=== PATIENT | male | born 1945 | race Caucasian/White ===

== ENCOUNTER → 2017-01-12 | Outpatient (CLI) | payer MEDICARE ==
[~2017-01-12] MED LIST: ACET-62 PO; AMLO5TAB66 PO; CETI-269 PO; CHOL100018 PO; CLOP75TA19 PO; ISOS30TA6 PO; LACT1CAP80 PO; LEVO50TA11 PO; LEVO50TA69 PO; MULT-933 PO; NITR0.4T27 PO; PRAV40TA3 PO; RANI150T12 PO
[2017-01-12 11:03] LABS: BASOPHILS % (AUTO) 0.3 % (0-2); EOSINOPHILS # (AUTO) 0.1 T/MM3 (0-0.5); EOSINOPHILS % (AUTO) 1.1 % (0-4); HCT - HEMATOCRIT 45.5 % (41-53); HGB - HEMOGLOBIN 15.7 GM/DL (13.5-17.5); IMMATURE GRANULOCYTE # (AUTO) 0.02 T/MM3 (0.00-0.03); IMMATURE GRANULOCYTE % (AUTO) 0.2 % (0.0-0.5); LYMPHOCYTES # (AUTO) 1.7 T/MM3 (1-4.8); LYMPHOCYTES % (AUTO) 17.2 % (23-45); MEAN CORPUSCULAR HGB 32.5 UUG (26-34); MEAN CORPUSCULAR HGB CONC(MCHC 34.5 GM/DL (31-37); MEAN CORPUSCULAR VOLUME 94.2 UM3 (80-100); MONOCYTES # (AUTO) 0.7 T/MM3 (0-0.8); MONOCYTES % (AUTO) 7.4 % (0-9.0); NEUTROPHILS #(AUTO)-ABSOLUTE 7.2 T/MM3 (1.8-7.7); NEUTROPHILS % (AUTO) 73.8 % (33-66); RED BLOOD COUNT 4.83 M/MM3 (4.50-5.90); WBC - WHITE BLOOD COUNT 9.8 T/MM3 (4.5-11.0)
[2017-01-12 11:14] LABS: ALBUMIN 4.4 G/DL (3.5-5.0); ALBUMIN/GLOBULIN RATIO 1.8 RATIO (1.1-2.2); ALKALINE PHOSPHATASE 71 U/L (38-126); ALT (SGPT) 33 U/L (21-72); ANION GAP 8 MEQ/L (5-15); AST (SGOT) 27 U/L (17-59); BUN/CREATININE RATIO 18 RATIO (6-26); CALCIUM 9.5 MG/DL (8.4-10.2); CHLORIDE 108 MEQ/L (98-107); CO2 - CARBON DIOXIDE 30 MEQ/L (22-30); CREATININE 0.9 MG/DL (0.8-1.5); GLOMERULAR FILTRATION RATE 83; GLUCOSE 94 MG/DL (75-110); POTASSIUM 4.6 MEQ/L (3.6-5); SODIUM 146 MEQ/L (134-144); TOTAL PROTEIN 6.9 G/DL (6.3-8.2)
== END ==
LOC: LAB 10:47
PROVIDERS: ATTEND Surgery Plastic and Reconstructive Surgery
DX: Z01.818 Encounter for other preprocedural examination (principal)
CPT/HCPCS: 36415; 80053; 85025

== ENCOUNTER → 2017-01-17 | Outpatient (CLI) | payer MEDICARE ==
[~2017-01-17] MED LIST changes: +ACET1TAB12 PO; +ASPI81TA2 PO; +CEPH-583 PO; +NIAC500T22 PO
--- NOTE | 2017-01-17 10:27 | DI ---
Indication: ITS.REASON: M54.5 LOW BACK PAIN with bilateral leg pain for several months PROCEDURE: MRI LUMBAR SPINE W/O CONTRAST: Encounter: Initial Comparison: Lumbar spine MRI dated June 13, 2015 Technique: Multiplanar multisequence MR imaging of the lumbar spine was performed without contrast. Findings: Alignment lumbar spine is stable. No acute fracture identified. Multiple small Schmorl's nodes seen. 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 Conus medullaris terminates normally at L1-L2. Paraspinal soft tissues show small probable hepatic cysts but no acute findings. Segmental analysis: L1-L2: Normal L2-L3: Normal L3-L4: Normal L4-L5: Small annular tear and central disk protrusion. Posterior decompression. Left lateral recess narrowing and severe left neural foraminal stenosis with impingement on the exiting left L4 nerve root by bone and disk material. Degenerative facet disease also contributes to moderate right neural foraminal stenosis. This is worse than described on the comparison report but visually appears similar. L5-S1: Evidence of an annular tear in the disk without focal protrusion or central canal stenosis. Mild degenerative facet hypertrophy. Right lateral osteophytes which slightly displaces the exiting right L5 nerve root. Mild right neural foraminal stenosis. No significant left foraminal narrowing. Impression: Postoperative lumbar spine with severe left neural foraminal stenosis at L4-L5. .
== END ==
LOC: IMA 09:32
PROVIDERS: ATTEND Orthopaedic Surgery
DX: M51.16 Intervertebral disc disorders with radiculopathy, lumbar region (principal); M47.26 Other spondylosis with radiculopathy, lumbar region; M47.27 Other spondylosis with radiculopathy, lumbosacral region; Z98.890 Other specified postprocedural states; M54.5 Low back pain

== ENCOUNTER 2017-01-19 07:24 | Day surgery (SDC) | payer MEDICARE ==
[~2017-01-19] VITALS: Ht 185.4 cm; Wt 92.0 kg
[2017-01-19] VITALS (23 sets, daily range): BP systolic 101–130; BP diastolic 53–81; PULSE 54–66; RESP 15–18; TEMP 97.6–98.4; O2SAT 91–96; Ht 185.4 cm; Wt 92.0 kg
[~2017-01-19 07:24] MED LIST changes: -ACET-62 PO; -ACET1TAB12 PO; -ASPI81TA2 PO; -CEPH-583 PO; +FENTANYL 100mcg/2ml INJECTION IV PRN; +LIDOCAINE 1% (10mg/ml) 2ml SDV INJ ONE; +LR 1,000 ML IV SCH
[2017-01-19] MEDS ORDERED: ASPI81TA2 PO (07:39)
--- OUTSIDE RECORDS SUMMARY | 2017-01-19 07:43 | XMS REPORT | Continuity of Care Document ---
Author Author [facility] Organization [facility] Address Unknown Phone Unavailable Support Name Relationship Address Phone PAN ROBERTS MD Caregiver [address] [place] [address] Unavailable JONATHAN WOLFF MD Caregiver [address] [phone] Unavailable WADE HOLCOMB MD Caregiver [address] [place] [address] Unavailable DIDI SANTOS Next Of Kin [address] [place] [address] Insurance Providers Guarantor Miguel Santos Address [address] [place] [address] Email DENIED/NO TO PT [facility] Medicare Policy Number [id number] Subscriber's Name Miguel Santos Relationship 18 Self Effective Date 09 [facility] Policy Number [id number] Subscriber's Name Miguel Santos Relationship 18 Self Group Number [id number] Advance Directives Directive Response Recorded Date/Time Advanced Directives Type Living Will DPOA for Healthcare 04/05/14 1:38pm Ordered Resuscitation Status Full Code 04/05/14 2:47pm Resuscitation Documents on File No 04/05/14 1:38pm Chief Complaint and Reason for Visit Chief Complaint Chest Pain Reason for Visit Coronary artery disease [id number] Chest pain at rest Problems Past Problems Medical Problem Onset Date Atypical angina Unknown Chest pain at rest Unknown Chest pain radiating to arm Unknown Coronary artery disease Unknown Gastroenteritis Unknown Medications Current Home Medications Medication Dose Units Route Directions Days Qty Instructions Start Date Acetaminophen 500 Mg Tablet 1-2 Tab Oral As Needed as needed for Pain 09/13/16 Amlodipine Besylate (Norvasc) 5 Mg Tablet 2.5 Mg Oral Twice A Day 12/08/09 Cetirizine Hcl 10 Mg Tablet 10 Mg Oral Daily 09/11/16 Cholecalciferol (Vitamin D3) 1,000 Unit Tablet 1,000 Mg Oral Daily 07/06/16 Clopidogrel Bisulfate (Plavix) 75 Mg Tablet 75 Mg Oral Bedtime Isosorbide Mononitrate (Isosorbide Mononitrate Er) 30 Mg Tab.er.24h 30 Mg Oral Am 09/13/16 Isosorbide Mononitrate (Isosorbide Mononitrate Er) 30 Mg Tab.er.24h 60 Mg Oral Every Evening 09/13/16 Lactobacillus Combo No.10 (Probiotic) 1 Each Capsule 1 Cap Oral Daily 09/13/16 Levothyroxine Sodium (Synthroid) 50 Mcg Tablet 50 Mcg Oral 4 Times A Week TAKES 1 TAB TUE-Tue12/08/09 Levothyroxine Sodium 50 Mcg Tablet 25 Mcg Oral Tuesday09/13/16 Multivitamin (Multi-Day Vitamins) 1 Each Tablet 1 Tab Oral Daily 09/13/16 Nitroglycerin (Nitroquick) 0.4 Mg Tablet 0.4 Mg Oral Every 5 Minutes X 3 as needed for Chest Pain 12/08/09 Pravastatin Sodium 40 Mg Tablet 40 Mg Oral Daily 09/13/16 Ranitidine Hcl (Zantac) 150 Mg Tablet 150 Mg Oral Twice A Day 04/15 Past Home Medications Medication Directions Ordered Status Amlodipine Besylate (Norvasc) 2.5 Mg Tablet, 5 Mg Oral Daily 02/18/09 Discontinued Aspirin 81 Mg Tablet, 1 Tab Oral Daily 12/08/09 Discontinued Aspirin 81 Mg Tablet, 81 Mg Oral Daily 02/18/09 Discontinued Aspirin 325 Mg Tablet.dr, 325 Mg Oral Daily 10/04/08 Discontinued Clopidogrel Bisulfate (Plavix) 75 Mg Tablet, 75 Mg Oral Daily 02/18/09 Discontinued Doxycycline Hyclate 100 Mg Capsule, 100 Mg Oral Twice A Day 07/07/12 Discontinued Doxycycline Monohydrate (Doxycycline) 150 Mg Tablet, 150 Mg Oral Twice A Day 10/04/08 Discontinued Ergocalciferol (Vitamin D) 400 Unit Tablet, 3 Tab Oral Daily 12/08/09 Discontinued Ergocalciferol (Vitamin D) 400 Unit Capsule, 800 Unit Oral Daily 02/18/09 Discontinued Ibuprofen 200 Mg Tablet, 200 Mg Oral As Needed 10/04/08 Discontinued Isosorbide Mononitrate (Imdur) 30 Mg Tablet, 30 Mg Oral Daily 02/18/09 Discontinued Levothyroxine Sodium (Synthroid) 50 Mcg Tablet, 50 Mcg Oral Daily 02/18/09 Discontinued Metoprolol Succinate 25 Mg Tab.sr.24h, 25 Mg Oral 1/2 Tab Qod 02/18/09 Discontinued Multivitamins (Multivitamin) 1 Tab Tablet, 1 Tab Oral Daily 02/18/09 Discontinued Niacin (Niaspan) 1,000 Mg Tablet.sa, 2000 U Oral Daily 02/18/09 Discontinued Nitroglycerin (Nitroquick) 0.4 Mg Tablet, 0.4 Mg Sublingual As Needed Discontinued Rangely-3 Fatty Acids (Rangely-3) 1,000 Mg Capsule, 1 Cap Oral Daily 12/08/09 Discontinued Pravastatin Sodium 20 Mg Tablet, 20 Mg Oral Daily 02/18/09 Discontinued Social History Social History Problem Response Recorded Date/Time Onset Date Status Chewing Tobacco Status No 04/05/2014 1:38pm Not Applicable Not Applicable Hx Substance Use No 09/13/2016 12:10pm Not Applicable Not Applicable Hx Alcohol Use N 3-4X YR 09/13/2016 12:10pm Not Applicable Not Applicable Has the pt used tobacco in the last 12 months No 09/11/2016 1:01am Not Applicable Not Applicable Query Response Start Date Stop Date Smoking Status Never smoker Hospital Discharge Instructions No hospital discharge instructions. Plan of Care Discharge Date 09/13/16 2:49pm Disposition 02 TO [facility] Condition at Discharge Stable Prescriptions See Medication Section Referrals PAN ROBERTS MD Address: [address] [place] [id number] Functional Status No functional status results. Allergies, Adverse Reactions, Alerts Allergen Type Severity Reaction Status Last Updated NSAIDS (Non-Steroidal Anti-Inflamma Adverse Reaction Unknown DO NOT TAKE PER SHELLACKER Active 09/13/16 Lorazepam Adverse Reaction Intermediate HEADACHE; DIZZINESS; VOMITING Active 09/13/16 Oxycodone Adverse Reaction Intermediate HEADACHE; DIZZINESS; STOMACH PAIN; FLUSHING Active 09/13/16 Sulfamethoxazole Allergy Unknown Active 09/13/16 Trimethoprim Allergy Unknown Active 09/13/16 Ciprofloxacin Allergy Intermediate N/V, DIZZINESS Active 09/13/16 Metronidazole Allergy Mild confused Active 09/13/16 Clarithromycin Allergy Unknown Active 09/13/16 Paroxetine Allergy Intermediate N/V, DIZZINESS Active 09/13/16 Doxazosin Allergy Intermediate N/V, DIZZINESS Active 09/13/16 Pantoprazole Allergy Unknown DISORIENTATION Active 09/13/16 Immunizations Query Response on File Recorded Date/Time Hx Influenza Vaccination Y JUL 2016 09/11/16 1:01am Hx Pneumococcal Vaccination Y WITHIN THE LAST 5 YEARS 09/11/16 1:01am Hx Influenza Vaccination Y JUL 2016 09/11/16 1:01am Vital Signs Acute Vital Signs Vital Response Date/Time Temperature (Fahrenheit) 98.3 deg F (96.8 - 99.1) 09/13/2016 2:49pm Temperature (Calculated Celsius) 36.76556 degrees C (36.0 - 37.3) 09/13/2016 2:49pm Temperature Source Temporal 07/19/2016 12:06pm Pulse Rate (adult) 54 bpm (60 - 100) 09/13/2016 2:49pm Respiratory Rate 13 breaths/min (10 - 20) 09/13/2016 2:49pm O2 Sat by Pulse Oximetry 97 % (90 - 100) 09/13/2016 2:49pm Oxygen Delivery Method Room Air 09/11/2016 7:38am Oxygen Flow Rate 4.00 L/min 07/19/2016 12:06pm Blood Pressure 160/85 mm Hg 09/13/2016 2:49pm Blood Pressure Source Automatic Cuff 09/11/2016 7:38am Height (Feet) 6 feet 09/13/2016 12:10pm Height (Inches) 2.00 inches 09/13/2016 12:10pm Weight (Kilograms) 89.200 kg 09/13/2016 12:10pm Body Mass Index (BMI) 25.0 09/13/2016 12:10pm Results Laboratory Results Test Name Result Units Flags Reference Collection Date/Time Result Date/ Time Comments Lipase 64 U/L 23-300 07/06/2016 2:54pm 07/06/2016 6:58pm Total Bilirubin 0.70 MG/DL 0.20-1.30 09/11/2016 11:31am 09/11/2016 11: 48am Alkaline Phosphatase 59 U/L 38-126 09/11/2016 11:31am 09/11/2016 11: 48am Total Protein 5.7 G/DL L 6.3-8.2 09/11/2016 11:31am 09/11/2016 11:48am Albumin 3.5 G/DL 3.5-5.0 09/11/2016 11:31am 09/11/2016 11:48am Globulin 2.2 G/DL L 2.4-3.6 09/11/2016 11:31am 09/11/2016 11:48am Albumin/Globulin Ratio 1.6 RATIO 1.1-2.2 09/11/2016 11:3109/11/2016 11:48am Aspartate Amino Transf (AST/SGOT) 23 U/L 17-59 09/11/2016 11:31am 09/11 11:48am Alanine Aminotransferase (ALT/SGPT) 31 U/L 21-72 09/11/2016 11:31am 09/2016 11:48am White Blood Count 6.5 T/MM3 4.5-11.0 09/13/2016 12:27pm 09/13/2016 12: 49pm Red Blood Count 4.50 M/MM3 4.50-5.90 09/13/2016 12:27pm 09/13/2016 12: 49pm Hemoglobin 14.5 GM/DL 13.5-17.5 09/13/2016 12:09/13/2016 12:49pm Hematocrit 43.3 % 41-53 09/13/2016 12:09/13/2016 12:49pm Mean Corpuscular Volume 96.2 UM3 80-100 09/13/2016 12:pm 09/13/2016 12:49pm Mean Corpuscular Hemoglobin 32.2 UUG 26-34 09/13/2016 12:pm 2015 12:49pm Mean Corpuscular Hemoglobin Concent 33.5 GM/DL 31-37 09/13/2016 12:09/13/2016 12:49pm RDW Standard Deviation 44.7 FL 36.9-50.2 09/13/2016 12:2709/13/2016 12:49pm Platelet Count 165 T/MM3 130-400 09/13/2016 12:pm 09/13/2016 12:49pm Mean Platelet Volume 9.8 UM3 9.4-12.4 09/13/2016 12:pm 09/13/2016 12: 49pm Neutrophils (%) (Auto) 65.9 % 33-66 09/13/2016 12:pm 09/13/2016 12: 49pm Lymphocytes (%) (Auto) 23.7 % 23-45 09/13/2016 12:09/13/2016 12: 49pm Monocytes (%) (Auto) 8.1 % 0-9.0 09/13/2016 12:09/13/2016 12:49pm Eosinophils (%) (Auto) 1.7 % 0-4 09/13/2016 12:09/13/2016 12:50pm Basophils (%) (Auto) 0.3 % 0-2 09/13/2016 12:09/13/2016 12:50pm Immature Granulocyte % (Auto) 0.3 % 0.0-0.5 09/13/2016 12:2015 12:50pm Absolute Neutrophils (auto) 4.3 T/MM3 1.8-7.7 09/13/2016 12:2015 12:50pm Absolute Lymphocytes (auto) 1.5 T/MM3 1-4.8 09/13/2016 12:pm 2015 12:50pm Absolute Monocytes (auto) 0.5 T/MM3 0-0.8 09/13/2016 12:2015 12:50pm Absolute Eosinophils (auto) 0.1 T/MM3 0-0.5 09/13/2016 12:2015 12:50pm Absolute Basophils (auto) 0.0 T/MM3 0-0.2 09/13/2016 12:2015 12:50pm Absolute Immature Granulocyte (auto 0.02 T/MM3 0.00-0.03 09/13/2016 12: 09/13/2016 12:50pm D-Dimer 181 NG/ML 0-230 09/13/2016 12:09/13/2016 12:49pm <230 NG/ ML D-DU=PRESUMPTIVE NEGATIVE FOR PE OR DVT >230 NG/ML D-DU=ADDITIONAL EVAL FOR PE OR DVT RECOMMENDED Icterus Index < 2 0-7 09/13/2016 12:09/13/2016 12:58pm Chemistry Specimen Hemolysis < 15 0-25 09/13/2016 12:09/13/2016 12:58pm 0-25: Specimen Exhibited No Hemolysis. Turbidity < 20 0-20 09/13/2016 12:pm 09/13/2016 12:58pm Sodium Level 147 MEQ/L H 134-144 09/13/2016 12:27pm 09/13/2016 12:58pm Potassium Level 4.6 MEQ/L 3.6-5 09/13/2016 12:27pm 09/13/2016 12:58pm Chloride Level 110 MEQ/L H 98-107 09/13/2016 12:27pm 09/13/2016 12:58pm Carbon Dioxide Level 27 MEQ/L 22-30 09/13/2016 12:pm 09/13/2016 12: 58pm Anion Gap 10 MEQ/L 5-15 09/13/2016 12:2709/13/2016 12:58pm Blood Urea Nitrogen 13.0 MG/DL 9-09/13/2016 12:09/13/2016 12: 58pm Creatinine 0.9 MG/DL 0.8-1.5 09/13/2016 12:2709/13/2016 12:58pm BUN/Creatinine Ratio 14 RATIO 6-26 09/13/2016 12:09/13/2016 12: 58pm Glomerular Filtration Rate Calc 83 09/13/2016 12:09/13/2016 12 :58pm Glucose Level 92 MG/DL 75-110 09/13/2016 12:09/13/2016 12:58pm Calculated Osmolality 282 MOSM/KG H 261-280 09/13/2016 12:2015 12:58pm Calcium Level 9.5 MG/DL 8.4-10.2 09/13/2016 12:09/13/2016 12:58pm Troponin I < 0.012 ng/ml 0-0.12 09/13/2016 12:09/13/2016 1:10pm Troponin values with a difference of 55% increase from orginal troponin value represent a true biological DELTA value. (%increase Calc=Orginal Troponin value, divided by subsequent Troponin value, multiplied by 100) MP-Rjb-O-Type Natriuretic Peptide 89 PG/ML 0-175 09/13/2016 12: 2:20pm Rule in cut points: <50 years old=450; 50-75 years old=900; >75 years old=1800; When utilizing ProBNP rule-in cut points, adjustment for impaired renal function is typically not required. Name: MIGUEL SANTOS Unit #: [id number] : 1945 Sex: M Admit Date: Loc / Svc: ED Discharge Date: DIAGNOSTIC IMAGING REPORT Report #: [id number] [facility] IRIS Rojas INDICATION: ITS.REASON: chest pain PROCEDURE: CHEST 2-VIEWS UPRIGHT (PA \\T\\ LAT) Encounter: Initial COMPARISON: None FINDINGS: The lungs are clear without evidence of focal abnormal airspace opacity. There is no pleural effusion or pneumothorax. There appears to be a mild degree of pulmonary hyperaeration. Monitor leads overlie the chest. The heart size, mediastinal contours and pulmonary vascularity are within normal limits. There is no significant skeletal abnormality. IMPRESSION: 1. No evidence of acute cardiopulmonary abnormality. 2. Chronic obstructive pulmonary disease. . Procedures Procedure Status Date Provider(s) CHEST X-RAY 1 VIEW FRONTAL Completed 07/06/16 CT ABD & PELV W/CONTRAST Completed 07/06/16 METABOLIC PANEL TOTAL CA Completed 07/06/16 ASSAY OF LIPASE Completed 07/06/16 ASSAY OF TROPONIN QUANT Completed 07/06/16 COMPLETE CBC W/AUTO DIFF WBC Completed 07/06/16 ELECTROCARDIOGRAM TRACING Completed 07/06/16 HYDRATE IV INFUSION ADD-ON Completed 07/06/16 THER/PROPH/DIAG INJ IV PUSH Completed 07/06/16 TX/PRO/DX INJ NEW DRUG ADDON Completed 07/06/16 TX/PRO/DX INJ NEW DRUG ADDON Completed 07/06/16 TX/PRO/DX INJ NEW DRUG ADDON Completed 07/06/16 TX/PRO/DX INJ SAME DRUG ASSORTER Completed 07/06/16 TX/PRO/DX INJ SAME DRUG ASSORTER Completed 07/06/16 EMERGENCY DEPT VISIT Completed 07/06/16 [id number] ITEM OR SERVICE Completed 07/06/16 [id number]"INJECTION, PROCHLORPERAZINE, UP TO 10 MG" Completed 07/06/16 [id number]"INJECTION, PROCHLORPERAZINE, UP TO 10 MG" Completed 07/06/16"INJECTION, HYDROMORPHONE, UP TO 4 MG" Completed 07/06/16"INJECTION, KETOROLAC TROMETHAMINE, PER 15 MG" Completed 07/06/16"INJECTION, ONDANSETRON HYDROCHLORIDE, PER 1 MG" Completed 07/06/16"INJECTION, ONDANSETRON HYDROCHLORIDE, PER 1 MG" Completed 07/06/16"INFUSION, NORMAL SALINE SOLUTION , 1000 CC" Completed 07/06/16"INFUSION, NORMAL SALINE SOLUTION , 250 CC" Completed 07/06/16"LOW OSMOLAR CONTRAST MATERIAL, 300-399 MG/ML IODINE C Completed PRP I/KEVIN INIT REDUC >5 YR Completed 07/19/16 YULI ORTEGA MD, FACS, CWS METABOLIC PANEL TOTAL CA Completed 07/19/[id number] ITEM OR SERVICE Completed 07/19/16"INJECTION, CEFAZOLIN SODIUM, 500 MG" Completed 07/19/16"INJECTION, DEXAMETHASONE SODIUM PHOSPHATE, 1MG" Completed 07/19/16"INJECTION, ONDANSETRON HYDROCHLORIDE, PER 1 MG" Completed 07/19/16 PROPOFOL INJ 500 MG/50ML Completed 07/19/16"INJECTION, FENTANYL CITRATE, 0.1 MG" Completed 07/19/16"RINGERS LACTATE INFUSION, UP TO 1000 CC" Completed 07/19/16 Encounters Encounter Location Arrival/Admit Date Discharge/Depart Date Attending Provider Departed Emergency Room [facility] 09/13/16 12:08pm 09/13/16 2: 49pm WADE HOLCOMB MD Discharged Inpatient (obs) [facility] 09/11/16 12:21am 09/11/16 12:50pm PAN ORBERTS MD Departed Surgical Day Care [facility] 07/19/16 9:22am 07/19/16 1: 30pm YULI ORTEGA FACS CWS MD Departed Emergency Room [facility] 07/06/16 2:28pm 07/06/16 8: 33pm ANDREW CORADO MD Recent Diagnosis
--- NOTE | 2017-01-19 07:50 | NUR ---
LAB HERE TO DRAW PREOP LAB
[2017-01-19] MEDS ORDERED: CEFAZOLIN 1 GRAM INJECTION IV ONE (08:00)
--- NOTE | 2017-01-19 08:47 | ANESPREOP ---
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 Allergies: Coded Allergies: ciprofloxacin (Verified Allergy, Intermediate, N/V, DIZZINESS, 01/19/17) doxazosin (Verified Allergy, Intermediate, N/V, DIZZINESS, 01/19/17) paroxetine (Verified Allergy, Intermediate, N/V, DIZZINESS, 01/19/17) metronidazole (Verified Allergy, Mild, confused, 01/19/17) clarithromycin (Verified Allergy, Unknown, 01/19/17) pantoprazole (Verified Allergy, Unknown, DISORIENTATION, 01/19/17) sulfamethoxazole (Verified Allergy, Unknown, 01/19/17) trimethoprim (Verified Allergy, Unknown, 01/19/17) lorazepam (Verified Adverse Reaction, Intermediate, HEADACHE; DIZZINESS; VOMITING, 01/19/17) oxycodone (Verified Adverse Reaction, Intermediate, HEADACHE; DIZZINESS; STOMACH PAIN; FLUSHING, 01/19/17) NSAIDS (Non-Steroidal Anti-Inflamma (Verified Adverse Reaction, Unknown, DO NOT TAKE PER SPECIAL EDUCATION PROFESSOR, 01/19/17) Ht/Wt/BMI Height: 6 ' 1.00 " Weight: 92.000 kg BMI: 26.8 kg/m2 Vital Signs Date Time Temp Pulse Resp B/P Pulse Ox O2 Delivery O2 Flow Rate FiO2 01/19/17 08:08 98.4 58 16 102/69 93 Room Air Medications Inpatient Medications Current Medications Medications (Trade) Dose Ordered Sig/Silvia Start Time Stop Time Status Last Admin Dose Admin Lactated Ringer's (Lactated Ringers) 1,000 ml @ 50 mls/hr Q20H 01/19/17 07:00 01/19/17 08:28 50 MLS/HR Fentanyl (Fentanyl) FENTANYL 25-50 MCG IV P... PRN PRN 01/19/17 07:00 Midazolam HCl (Versed) versed 0.5- 3 mg iv ... PRN PRN 01/19/17 08:30 Amlodipine Besylate (Norvasc) 5 Mg Tablet, 2.5 MG PO NOON, (Reported) Last Taken: on 01/19/17 0635 Aspirin (Aspirin) 81 Mg Tab.chew, 1 TAB PO HS, (Reported) Cetirizine HCl (Cetirizine HCl) 10 Mg Tablet, 10 MG PO DAILY, (Reported) Last Taken: on 01/18/17 Cholecalciferol (Vitamin D3) 1,000 Unit Tablet, 1, 000 MG PO DAILY, (Reported) Last Taken: on 01/18/17 Clopidogrel Bisulfate (Plavix) 75 Mg Tablet, 75 MG PO HS, (Reported) Last Taken: on 01/17/17 2100 Isosorbide Mononitrate (Isosorbide Mononitrate ER) 30 Mg Tab.er.24h, 30 MG PO AM, (Reported) Last Taken: on 01/19/17 0635 Isosorbide Mononitrate (Isosorbide Mononitrate ER) 30 Mg Tab.er.24h, 2 TAB PO PM, (Reported) Last Taken: on 01/18/17 1600 Lactobacillus Combo No.10 (Probiotic) 1 Each Capsule, 1 CAP PO DAILY, (Reported) Last Taken: on 01/17/17 Levothyroxine Sodium (Synthroid) 50 Mcg Tablet, 50 MCG PO 4XW, (Reported) TAKES 1 TAB TUE-YULI Last Taken: on 01/18/17 Levothyroxine Sodium (Levothyroxine Sodium) 50 Mcg Tablet, 0.5 TAB PO TUESDAY, (Reported) Last Taken: on 01/14/17 Multivitamin (Multi-Day Vitamins) 1 Each Tablet, 1 TAB PO DAILY, (Reported) Last Taken: on 01/18/17 Niacinamide (Niacin) 500 Mg Tablet, 1 TAB PO BID, ( Reported) Last Taken: on 01/18/17 Nitroglycerin (Nitroquick) 0.4 Mg Tablet, 0.4 MG PO Q5MIN PRN for CHEST PAIN, (Reported) Pravastatin Sodium (Pravastatin Sodium) 40 Mg Tablet, 40 MG PO DAILY, (Reported) Last Taken: on 01/18/17 Ranitidine HCl (Zantac) 150 Mg Tablet, 150 MG PO BID, (Reported) Last Taken: on 01/18/17 Currently on Beta Waldemar: No Medical/Surgical History Anesthesia PMH: Reports: *Angina (AUG 2013-NON CARDIAC/ STENT PLACE 08/2016), *Hypertension (PER H&P), *SD (2003 & 2004 ), Arthritis, Asthma (HX OF A CHILD ), Cancer (MULTIPLE SCC EXCISED), Clotting Problems (ON PLAVIX ), Hyperlipidemia, Pneumonia (HX OF WHEN YOUNG), Reflux (CONTROLLED WITH ZANTAC ), Thyroid Disease (HASHIMOTOS DISEASE ), Denies: *Diabetes, *Dyspnea, Anesthesia Reactions (NO AIRWAY/INTUBATION PROBLEMS), Blood Transfusion Reac, CHF, COPD, CVA/Stroke/TIA, Deep Vein Thrombosis, Glaucoma, Hepatitis, Hiatal Hernia, Malignant Hyperthermia, Pacemaker, Renal Disease, Seizures, Sleep Apnea, Tuberculosis Smoking Status: Former smoker Has pt. smoked today?: No Use Chewing Tobacco?: No Second Hand Exposure: No Substance Use Type: does not use Alcohol Intake: none Past Surgical History Orthopedic Surgeries: Yes - LUMBAR LAMINECTOMYM, RCR, L. KNEE SCOPE Abdominal Surgeries: No - TIARA. HERNIA, HERMILA Genitourinary Surgeries: Yes - RT. EPIDIDYMECTOMY & CYSTOUROSCOPY Cardiac Surgeries: Yes - STENT 2015 JONATHAN WOLFF Endocrine Surgeries: No Reproductive Surgeries: Yes - vasectomy Neurological Surgeries: No Ear Surgeries: No Nose Surgeries: No Throat Surgeries: No Other Surgeries: Yes - TIARA. UPPER BLEPH., TRAUMATIC VIVIAN. TIP OF FINGER LEFT HAND Anesthesia Adverse Reactions: FOUND none Family Hx of Anesthesia Advers: none Pertinent Findings EKG Rhythm: Sinus Rhythm Physical Exam Respiratory: Lungs clear Cardiovascular: FOUND Regular rate, rhythm Airway Assessment Mallampati Score: II TMD: 3 Fingerbreadths Neck Extension: Good Overall Assessment: No Airway Concerns ASA: 3 Plan Anesthesia Plan: MAC Discussion Discussed risks/options/alternatives of anesthesia and questions answered. Patient consents. Nursing pain assessment noted. Attestation Statement Prior to the delivery of any anesthetic medication, I examined the patient, developed the plan, obtained the patient's consent and discussed the risk and benefits of the procedure with the patient/guardian. [facility] ASSOCIATE Jan 19, 2017 08:47
[2017-01-19] MEDS ORDERED: LIDOCAINE 1%/EPI 1:100,000 20ml MDV ONE (09:05)
[2017-01-19] MEDS: MIDAZOLAM 5mg/5ml INJECTION IV PRN ×2 (09:07→10:01)
[2017-01-19] MEDS ORDERED: MIDAZOLAM 2mg/2ml INJECTION ONE (10:56)
[2017-01-19] MEDS ORDERED: HYDROCODONE/APAP 5 mg/325 mg TABLET PO PRN (11:30)
[2017-01-19] MEDS ORDERED: ONDANSETRON 4mg/2ml INJECTION IV PRN (11:30)
[2017-01-19] MEDS ORDERED: ATROPINE 1mg/10ml Syringe IV PRN (11:30)
[2017-01-19] MEDS ORDERED: CEPH-583 PO (11:34)
[2017-01-19] MEDS ORDERED: ACET1TAB12 PO (11:34)
--- NOTE | 2017-01-19 11:41 | PDPROCED ---
Procedure Note Date 01/19/17 Procedure Name Excision of SCC right lower leg with frozen section guidance of margins and complex closure: Lesion size 1.3 cm, excision 2.0 cm, final defect 4.5 cm Biopsy and excision of BCC central parietal scalp with frozen section guidance of margins and complex closure: Lesion size 2.3 cm, excision 3.3 cm, final defect 5.5 cm Procedure Detail Preop dx: SCC Right lower leg; possible malignancy central parietal scalp Postop dx: SCC Right lower leg; BCC central parietal scalp Anesthesia: MAC EBL: Less than 30 ml Case: Clean Complications: None JOSE ANGEL BANEGAS MD Jan 19, 2017 11:40
--- NOTE | 2017-01-19 11:58 | ANESPO ---
Post-Op Note Date 01/19/17 Time: 11:58 Status Pt Participated in Evaluation: Pt participated in person Vital Signs Date Time Temp Pulse Resp B/P Pulse Ox O2 Delivery O2 Flow Rate FiO2 01/19/17 11:45 62 18 118/69 96 Room Air 01/19/17 11:27 97.6 Respiratory Function: Airway patent Cardiovascular Function: Regular pulse Telemetry Pattern: SR Mental Status: Alert/oriented Pain Level Intensity: 0 Hydration: Taking po fluids Complications during Recovery None apparent Follow-Up Instructions Instructions Per Surgeon MARY ANN DE LEON [facility] THERAPIST Jan 19, 2017 11:58
--- NOTE | 2017-01-19 13:48 | NUR ---
09 DR[address] BANEGAS TO PT'S ROOM IN PREOP AREA TO INTERVIEW AND TORY PT. IV ANTIBIOTIC STARTED AT [address] BANEGAS'S WRITTEN ORDERS. IV VERSED GIVEN PER DR. BANEGAS'S ORDER. TIMEOUT PERFORMED BY SRUGICAL TEAM AT 09. SURGICAL SITES PREPPED WITH 3% CHLOROXYLENOL BY DR. BANEGAS. 09 1%LIDOCAINE WITH EPI 1:100,000 INJECTED INTO SURGICAL SITES. BOVIE SETTING AT 15. BIOPSY OF SCALP LESION TAKEN AT 09 AND SENT TO LAB. RIGHT LEG LESION EXCISED AT 09 AND ALSO SENT TO LAB FOR PATHOLOGY. SPECIMEN'S LABELED FOLLOWS: [id number] 1. BIOPSY OF SCALP LESION. 2. SQUAMOUS CELL CARCINOMA OF RIGHT LOWER LEG - NEEDLE AT 1200. PT. TOLERATED PROCEDURE WELL AND PROCEDURE ENDED AT 924.
--- NOTE | 2017-01-19 13:57 | NUR ---
1007 BIOPSY OF SCALP LESION CONFIRMED BASAL CELL CARCINOMA BY PATHOLOGIST. AFTER RE-PREPPING AND DRAPING SURGICAL SITE, LESION FURTHER EXCISED AND SENT TO PATHOLOGY TO DETERMINE MARGINS. SPECIMEN LABELED FOLLOWS: [id number] 3. 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
--- NOTE | 2017-01-19 22:11 | OPNOTEF ---
DATE 01/19/2017 SURGEON Layla Mueller MD PREOPERATIVE DIAGNOSIS Squamous cell carcinoma, right lower leg. Possible malignancy central parietal scalp. POSTOPERATIVE DIAGNOSES Squamous cell carcinoma, right lower leg. Basal cell carcinoma central parietal scalp. PROCEDURE Excision of squamous cell carcinoma, right lower leg, with frozen section guidance of margins and complex closure. Lesion size 1.3 cm, excision 2.0 cm, final defect 4.5 cm. Biopsy and excision of basal cell carcinoma, central parietal scalp, with frozen section guidance of margins and complex closure. Lesion size 2.3 cm, excision 3.3 cm, final defect 5.5 cm. ANESTHESIA MAC. INDICATIONS The patient is a 71-year-old male, well known to our office, presenting with a squamous cell carcinoma of his right lower leg. He had been referred by Dr. Paulo Butts. The lesion had been present for one year with gradual growth. He denied any bleeding. Dr. Butts performed a punch biopsy on 12/27/2016 which revealed superficially invasive, well-differentiated squamous cell carcinoma. The patient also had a lesion on the top of his head that had been present for one or two years. It had become scaly and he was able to pick it off, but the scale returned. He denies any bleeding. His medical clearance was from Dr. Butts and cardiology clearance was from Dr. Andres Acosta. On exam, he had a 1.3 cm erythematous lesion and biopsy site of the right lower lateral leg with crusting and post-biopsy changes. He also had a 2.3 cm dark, slightly raised lesion with crusting and healed ulceration of the central parietal scalp. In detailed discussion with the patient preoperatively, the risks, benefits and alternatives of excision of the right lower leg lesion and biopsy and possible excision of the scalp lesion were reviewed including, but not limited to, bleeding, infection, poor or keloid scarring, partial and/or complete loss of the flap and/or graft, residual and/or recurrent disease. The patient understood and wished to proceed. PROCEDURE The patient was marked preoperatively and then, after suitable IV sedation, the scalp and right leg were prepped and draped in the usual sterile manner. The involved areas were then infiltrated with 1% lidocaine with epinephrine. A biopsy was taken of the scalp lesion and sent for diagnosis. Subsequent pathology revealed a basal cell carcinoma with positive margins. In the interim, the right lower leg lesion was excised and handed off as a specimen with the tag at the 12 o'clock margin. Subsequent pathologic evaluation revealed squamous cell carcinoma with clear margins. Once the diagnosis of basal cell carcinoma had been obtained for the scalp, a frozen section was performed and also sent for pathologic evaluation. Once clear margins were confirmed in both lesions, the patient was brought to the operating room and again prepped and draped in the usual sterile manner. The areas were again infiltrated with 1% lidocaine with epinephrine, widely undermined and dog ears were removed. Of note, hemostasis throughout was obtained using electrocautery. The scalp wound was closed in one layer using interrupted sutures of 3-0 Prolene. The right lower leg wound was closed in two layers using interrupted buried sutures of 3-0 Monocryl Plus, a running subcuticular suture of 4-0 Monocryl Plus and a running 5-0 nylon. Benzoin and Steri-Strips were applied, as well as a dry sterile dressing and Mefix tape to the right lower extremity. A dry sterile dressing and tube gauze were applied to the scalp wound. The patient was then brought to the recovery room in stable condition. Estimated blood loss was less than 30 mL. The case was clean. Specimens were the squamous cell carcinoma of the right lower extremity and the basal cell carcinoma of the central parietal scalp. [facility]
== END 2017-01-19 12:15 | disposition home or self-care (01) ==
LOC: NSC 07:24
PROVIDERS: ATTEND Surgery Plastic and Reconstructive Surgery
DX: C44.722 Squamous cell carcinoma of skin of right lower limb, including hip (principal); C44.41 Basal cell carcinoma of skin of scalp and neck
CPT/HCPCS: 11602; 11624; 13121; 13122; 36415; 85576; 88305; 88331; 88332; J0690; J2250; J3010; J7120